=== PATIENT | female | born 1940 | race Hispanic/Latino ===

== ENCOUNTER 2017-04-04 17:48 | Emergency (ER) | payer MEDICARE, MEDICAID ==
[2017-04-04 18:34] LABS: #Basophils 0.1 thou/uL (0.0-0.2); #Eosinphils 0.1 thou/uL (0.0-0.7); #Lymphocytes 2.6 thou/uL (1.20-3.40); #Monocytes 0.8 thou/uL (0.11-0.59); #Neutrophils 5.3 thou/uL (1.40-6.50); %Basophils 0.8 % (0.0-1.0); %Eosinophils 0.7 % (0.0-10.0); %Lymphocytes 29.7 % (21.0-51.0); %Monocytes 8.5 % (0.0-10.0); Hematocrit 42.9 % (36.0-47.0); Mean Platelet Volume 7.5 fL (7.4-10.4); Red Blood Cell (RBC) Count 4.54 mill/uL (4.20-5.40); White Blood Cell (WBC) Count 8.8 thou/uL (4.8-10.8)
[2017-04-04 18:52] LABS: ALT (SGPT) 19 U/L (8-55); AST (SGOT) 19 U/L (5-34); Alkaline Phosphatase 94 U/L (40-150); Anion Gap 15 mmol/L (10-20); BUN (Urea Nitrogen) 13 mg/dL (9.8-20.1); Bilirubin, Total 0.9 mg/dL (0.2-1.2); CK (CPK) 33 U/L (29-168); Calc. Creatinine Clearance 0 mL/min (70-130); Calcium 9.9 mg/dL (7.8-10.44); Carbon Dioxide 26 mmol/L (23-31); Chloride 100 mmol/L (98-107); Estimated GFR-MDRD 83; Globulin 3.8 g/dL (2.4-3.5); Protein, Total 8.1 g/dL (6.0-8.3)
--- NOTE | 2017-04-04 18:52 | RAD ---
PORTABLE CHEST: History: Dizziness. Comparison: 01-12-11 FINDINGS: The lung quinonez are clear of infiltrate. Heart and mediastinum unremarkable. Vascular markings normal . IMPRESSION: No acute abnormality identified. POS: [facility]
[2017-04-04 18:57] LABS: Troponin I Less than 0.010 ng/mL (< 0.028)
--- NOTE | 2017-04-04 19:42 | RAD ---
LATERAL CHEST: History: Nausea, vomiting. FINDINGS: An AP chest was obtained at 7:25 p.m. No infiltrates seen in the lateral projection. Mild aortic calcification. The thoracic vertebrae main tain normal height and alignment. IMPRESSION: No acute abnormality identified. POS: [facility]
[2017-04-04 20:35] LABS: Bilirubin Negative (Negative); Blood, Urine Negative (Negative); Glucose, Urine (Dipstick) Negative (Negative); Ketone, Urine Negative (Negative); Nitrite Negative (Negative); Protein, Urine (Dipstick) Negative (Neg-Trace)
== END 2017-04-04 20:54 | disposition home or self-care (01) ==
LOC: ERS 17:48
DX: R11.2 Nausea with vomiting, unspecified (principal); E78.5 Hyperlipidemia, unspecified; I10 Essential (primary) hypertension; Z79.899 Other long term (current) drug therapy
CPT/HCPCS: 36415; 71010; 80053; 81003; 82553; 83690; 84484; 85025; 93005; 96360; 96361

== ENCOUNTER 2017-10-03 14:04 | Emergency (ER) | payer MEDICARE, MEDICAID ==
[2017-10-03 15:08] LABS: Bilirubin Negative (Negative); Blood, Urine Trace (Negative); Clarity CLEAR (Clear); Glucose, Urine (Dipstick) Negative (Negative); Leukocyte Negative (Negative); Nitrite Negative (Negative); Protein, Urine (Dipstick) Negative (Neg-Trace); Specific Gravity, Urine 1.015 (1.002-1.036); Urobilinogen 0.2 mg/dL (0.2-1.0); pH, Urine 5.5 (5.0-9.0)
[2017-10-03 15:11] LABS: Bacteria/HPF None Seen HPF (None Seen); Hyaline Casts/LPF 4-6 HYALINE CAST LPF (0-3 Hyaline); Pathc Cast-AUWi Flag 0.72 (0-2.49); RBC/HPF 0-3 HPF (0-3); Squamous Epithelial 0-3 HPF (0-3); WBC/HPF 0-3 HPF (0-3)
== END 2017-10-03 16:27 | disposition home or self-care (01) ==
LOC: ERS 14:04
DX: R30.0 Dysuria (principal); E78.5 Hyperlipidemia, unspecified; I10 Essential (primary) hypertension
CPT/HCPCS: 81003; 81015; 87086; 99283

== ENCOUNTER 2017-11-20 15:04 | Inpatient (IN) | payer MEDICARE, MEDICAID ==
[2017-11-20] MEDS ORDERED: Acetaminophen 500 MG TAB ONE (15:13)
--- NOTE | 2017-11-20 15:53 | RAD ---
FRONTAL VIEW CHEST: Comparison: 04-04-17 Indication: Fever. FINDINGS: No evidence of lobar consolidation. Minimal patchy density seen at left lung base. Cardiomediastinal silhouette is stable. No significant interval change. IMPRESSION: No obvious acute process. POS: [facility]
[2017-11-20 15:59] LABS: #Basophils 0.1 thou/uL (0.0-0.2); #Eosinphils 0.1 thou/uL (0.0-0.7); #Lymphocytes 1.2 thou/uL (1.20-3.40); #Monocytes 1.8 thou/uL (0.11-0.59); #Neutrophils 15.2 thou/uL (1.40-6.50); %Basophils 0.3 % (0.0-1.0); %Eosinophils 0.3 % (0.0-10.0); %Lymphocytes 6.7 % (21.0-51.0); %Monocytes 9.9 % (0.0-10.0); %Neutrophils 82.7 % (42.0-75.0); Mean Corpuscular HGB CONC 34.3 g/dL (32.0-36.0); Mean Corpuscular Hemoglobin 31.9 pg (27.0-31.0); Mean Corpuscular Volume 92.9 fL (78.0-98.0); Mean Platelet Volume 7.3 fL (7.4-10.4); Platelet Count 338 thou/uL (130-400); RBC Distribution Width 11.4 % (11.5-14.5); Red Blood Cell (RBC) Count 4.06 mill/uL (4.20-5.40); White Blood Cell (WBC) Count 18.4 thou/uL (4.8-10.8)
[2017-11-20 16:18] LABS: ALT (SGPT) 14 U/L (8-55); AST (SGOT) 15 U/L (5-34); Albumin 4.1 g/dL (3.4-4.8); Alkaline Phosphatase 101 U/L (40-150); Anion Gap 15 mmol/L (10-20); BUN (Urea Nitrogen) 9 mg/dL (9.8-20.1); Calc. Creatinine Clearance 0 mL/min (70-130); Calcium 9.2 mg/dL (7.8-10.44); Carbon Dioxide 22 mmol/L (23-31); Chloride 99 mmol/L (98-107); Estimated GFR-MDRD Greater than 90; Globulin 3.4 g/dL (2.4-3.5); Glucose 110 mg/dL (83-110); Protein, Total 7.5 g/dL (6.0-8.3); Sodium 133 mmol/L (136-145)
[2017-11-20] MEDS ORDERED: Piperacillin/Tazobactam 4.5 GM VIAL ONE (17:05)
[2017-11-20] MEDS ORDERED: Potassium Chloride 20 MEQ TAB ONE (17:05)
[2017-11-20 17:11] LABS: Bilirubin Negative (Negative); Blood, Urine Trace (Negative); Clarity CLEAR (Clear); Glucose, Urine (Dipstick) Negative (Negative); Leukocyte Negative (Negative); Nitrite Negative (Negative); Protein, Urine (Dipstick) Negative (Neg-Trace); Specific Gravity, Urine 1.006 (1.002-1.036); Urobilinogen 0.2 mg/dL (0.2-1.0)
[2017-11-20 17:14] LABS: Bacteria/HPF None Seen HPF (None Seen); Hyaline Casts/LPF 0-3 HYALINE CAST LPF (0-3 Hyaline); Pathc Cast-AUWi Flag 0.29 (0-2.49); RBC/HPF 0-3 HPF (0-3); Squamous Epithelial 0-3 HPF (0-3); WBC/HPF None Seen HPF (0-3)
--- NOTE | 2017-11-20 17:29 | RAD ---
SINGLE VIEW OF CHEST: Date: 11/20/17 COMPARISON: 04/04/17 and 11/20/17. HISTORY: Fever. FINDINGS: Single lateral view of the chest shows an opacity projecting just behind the heart. This could potent ially represent a small hiatal hernia. This could also represent a subtle retrocardiac infiltrate. No pleural effusion is seen. IMPRESSION: Hiatal hernia versus subtle retrocardiac infiltrate. POS: [facility]
[2017-11-20 20:26] VITALS: BMI 23.3
[2017-11-20] MEDS ORDERED: Sodium Chloride 0.9% 1,000 ML IV SCH (20:30)
[2017-11-20] MEDS ORDERED: Vancomycin HCl 1 GM in Premix Bag 1 BAG IVPB SCH (20:30)
[2017-11-20] MEDS ORDERED: Albuterol Sulfate 2.5 mg/3 ml Neb NEB PRN (21:00)
[2017-11-20] MEDS ORDERED: Prevnar 13-Val Conj/PF 0.5 ML SYRINGE IM ONE (21:00)
[2017-11-20] MEDS ORDERED: cefTRIAXone\\ROCEPHIN 1 GM in Sodium Chloride 0.9% 100 ML IVPB SCH (21:00)
[2017-11-20] MEDS ORDERED: Guaifenesin DM 100-10/5 ML UDCUP PO PRN (21:00)
[2017-11-20] MEDS: Sodium Chloride 0.9% 1,000 ML IV SCH (21:39)
[2017-11-20] MEDS: Azithromycin 500 MG in Sodium Chloride 0.9% 250 ML 250 ML IVPB SCH (21:39)
[2017-11-20] MEDS: Famotidine 20 MG TAB PO SCH (21:40)
[2017-11-20] MEDS: Atorvastatin Calcium 20 MG TAB PO SCH (21:40)
[2017-11-20] MEDS: Acetaminophen 325 MG TAB PO PRN (21:54)
[2017-11-20] MEDS ORDERED: Potassium Chloride 20 MEQ TAB PO SCH (22:00)
--- NOTE | 2017-11-20 23:54 | HP ---
REASON FOR ADMISSION: Sepsis, pneumonia. HISTORY OF PRESENT ILLNESS: The patient gives history of feeling warm around 11:00 a.m. Later, the patient started to develop fever. She took her hypertension medications and 2 tablets of aspirin. S till her fever was not getting relieved. All of this concerned her and was feeling weak as well. Th e patient managed to come to the emergency room. On arrival here, patient had a temperature of 100.6 with a fever with a white count of 18. The patient was suspected to have left retrocardiac area inf iltrate. No complaints of urinary urgency or frequency. Has no cough or expectoration as such. No complaints of chest pain, palpitation, PND or orthopnea. PAST MEDICAL AND SURGICAL HISTORY: Hypertension, dyslipidemia, hysterectomy. CURRENT MEDICATIONS: Norvasc 10 mg daily, quinapril 10 mg daily, hydrochlorothiazide 25 mg daily, at orvastatin 20 mg daily, Flexeril p.r.n., Motrin p.r.n. ALLERGIES: No known drug allergies. PERSONAL HISTORY: Does not abuse alcohol or drugs. No history of smoking. FAMILY HISTORY: Both parents of old age. Mom was 76. Father was in his 80s. CODE STATUS: Full. REVIEW OF SYSTEMS: The following complete review of systems was negative, unless otherwise mentioned in the HPI or below: Constitutional: Weight loss or gain, ability to conduct usual activities. Sk in: Rash, itching. Eyes: Double vision, pain. ENT/Mouth: Nose bleeding, neck stiffness, pain, te nderness. Cardiovascular: Palpitations, dyspnea on exertion, orthopnea. Respiratory: Shortness of breath, wheezing, cough, hemoptysis, fever or night sweats. Gastrointestinal: Poor appetite, abdom inal pain, heartburn, nausea, vomiting, constipation, or diarrhea. Genitourinary: Urgency, frequenc y, dysuria, nocturia. Musculoskeletal: Pain, swelling. Neurologic/Psychiatric: Anxiety, depression. Allergy/Immunologic: Skin rash, bleeding tendency. PHYSICAL EXAMINATION: GENERAL: The patient is a 77-year-old female who is currently not in any acute distress. VITAL SIGNS: Blood pressure 170/80, pulse 110 per minute, respiratory rate 20 per minute, temperatur e 100.6 degrees Fahrenheit, saturating 96% on room air. NECK: Supple, no elevated JVD. HEENT: Eyes, extraocular muscles intact. Pupils reacting to light. Oral cavity mucous membranes ar e dry. No exudates or congestion. CARDIOVASCULAR: S1, S2 heard. Regular rhythm, tachycardic. RESPIRATORY: Air entry 1+ bilateral. Scattered rhonchi plus no wheezes or rales. ABDOMEN: Soft, bowel sounds heard. No tenderness, rigidity or guarding. EXTREMITIES: No peripheral edema or calf tenderness. VASCULAR SYSTEM: Peripheral pulses 2+ bilateral, no ischemic ulcerations or gangrene. CENTRAL NERVOUS SYSTEM: No gross focal deficits noted. Patient is alert, awake, oriented well. PSYCHIATRIC: The patient's mood is euthymic. No hallucinations or delusions. LABORATORY AND X-RAY FINDINGS: EKG done shows sinus tachycardia at 110 beats per minute. There is p oor R-wave progression and nonspecific ST-T wave changes. White count of 18, H&H 13 and 37, platelet count is 338, MCV is 92 with 82% neutrophils. Sodium 133, potassium 3.0, serum bicarbonate 22, BUN 9, creatinine 0.5. Liver enzymes within normal limits. Albumin is 4.1. UA is negative for any inf ection. Chest x-ray done both AP, lateral view shows retrocardiac infiltrate and hiatal hernia. CLINICAL IMPRESSION AND PLAN: The patient will be admitted to medical floor for sepsis, possible pne umonia. She will be placed on Zithromax and ceftriaxone. We will continue her Lipitor and Norvasc a s before. We will also continue her Accupril at 5 mg twice daily. Gentle hydration with normal sali ne at 90 mL per hour. We will obtain an echo with 2D Doppler for LV function and valvular function. Respiratory cultures, blood and urine cultures will be obtained as well. We will continue to closel y monitor the patient on medical floor. The patient normally ambulates by herself without any assist constance devices.
[2017-11-21] MEDS: Acetaminophen 325 MG TAB PO PRN ×2 (03:23→08:04)
[2017-11-21 05:05] LABS: #Lymphocytes 1.5 thou/uL (1.20-3.40); #Monocytes 2.6 thou/uL (0.11-0.59); #Neutrophils 15.4 thou/uL (1.40-6.50); %Basophils 0.2 % (0.0-1.0); %Eosinophils 0.1 % (0.0-10.0); %Lymphocytes 7.6 % (21.0-51.0); %Monocytes 13.1 % (0.0-10.0); Hemoglobin 11.7 g/dL (12.0-16.0); Mean Corpuscular HGB CONC 33.8 g/dL (32.0-36.0); Mean Corpuscular Hemoglobin 31.6 pg (27.0-31.0); Mean Corpuscular Volume 93.4 fL (78.0-98.0); Mean Platelet Volume 7.7 fL (7.4-10.4); Platelet Count 304 thou/uL (130-400); RBC Distribution Width 11.7 % (11.5-14.5); Red Blood Cell (RBC) Count 3.72 mill/uL (4.20-5.40); White Blood Cell (WBC) Count 19.5 thou/uL (4.8-10.8)
[2017-11-21 05:36] LABS: Anion Gap 13 mmol/L (10-20); BUN (Urea Nitrogen) 6 mg/dL (9.8-20.1); Calc. Creatinine Clearance 89 mL/min (70-130); Calcium 8.7 mg/dL (7.8-10.44); Carbon Dioxide 22 mmol/L (23-31); Chloride 104 mmol/L (98-107); Estimated GFR-MDRD Greater than 90; Glucose 124 mg/dL (83-110); Potassium 3.7 mmol/L (3.5-5.1); Sodium 135 mmol/L (136-145)
[2017-11-21] MEDS: Amlodipine 10 MG TAB PO SCH (09:18)
[2017-11-21] MEDS: Potassium Chloride 20 MEQ TAB PO SCH ×2 (09:18→16:35)
[2017-11-21] MEDS: Enoxaparin Sodium 40 MG/0.4 ML SYRINGE SC SCH (09:19)
[2017-11-21] MEDS: Famotidine 20 MG TAB PO SCH ×2 (09:20→20:11)
[2017-11-21] MEDS: Sodium Chloride 0.9% 1,000 ML IV SCH ×2 (09:25→12:24)
--- NOTE | 2017-11-21 10:47 | PDOC.PN ---
- Subjective Encounter Start Date: 11/21/17 Encounter Start Time: 09:20 Subjective: c/o cough with expectoration this am -: no chest pain or palp -: son at bedside - Objective Resuscitation Status: Resuscitation Status FULL:Full Resuscitation MAR Reviewed: Yes Vital Signs & Weight: Vital Signs (12 hours) Temp Pulse Resp BP BP Pulse Ox 11/21/17 09:18 86 132/66 11/21/17 07:34 99.7 F H 86 16 132/66 95 11/21/17 06:00 99.1 F 69 18 100/62 93 L 11/21/17 03:20 103.0 F H 11/21/17 00:00 100.1 F H 89 20 118/69 92 L I&O: 11/20/17 11/21/17 11/22/17 06:59 06:59 06:59 Intake Total 2160 Balance 2160 Result Diagrams: 11/21/17 03:46 11/21/17 03:46 Phys Exam - Physical Examination HEENT: PERRLA, moist MMs Neck: no JVD, supple Respiratory: no wheezing, no rales rhonchi+ Cardiovascular: RRR, no significant murmur Gastrointestinal: soft, non-tender, positive bowel sounds Musculoskeletal: no edema, pulses present Neurological: non-focal, moves all 4 limbs Psychiatric: normal affect, A&O x 3 Dx/Plan (1) Sepsis Code(s): A41.9 - SEPSIS, UNSPECIFIED ORGANISM Status: Acute Qualifiers: Sepsis type: sepsis due to unspecified organism Qualified Code(s): A41.9 - Sepsis, unspecified organism (2) PNA (pneumonia) Code(s): J18.9 - PNEUMONIA, UNSPECIFIED ORGANISM Status: Acute Qualifiers: Pneumonia type: due to unspecified organism Laterality: left Lung location: lower lobe of lung Qualified Code(s): J18.1 - Lobar pneumonia, unspecified organism (3) HTN (hypertension) Code(s): I10 - ESSENTIAL (PRIMARY) HYPERTENSION Status: Chronic Qualifiers: Hypertension type: essential hypertension Qualified Code(s): I10 - Essential (primary) hypertension (4) Dyslipidemia Code(s): E78.5 - HYPERLIPIDEMIA, UNSPECIFIED Status: Chronic - Plan is on zithromax and ceftriaxone -: nebs q6h/qid -: continue norvasc and lipitor -: dc quinapril due to cough at present -: CT chest to confirm if its pna, wbc is 19k, bnp 127 * . Review of Systems - Medications/Allergies Allergies/Adverse Reactions: Allergies Allergy/AdvReac Type Severity Reaction Status Date / Time No Known Allergies Allergy Unverified 11/20/17 20:22 Medications: Current Medications Acetaminophen (Tylenol) 650 mg PO Q4H PRN PRN Reason: Headache/Fever or Pain Last Admin: 11/21/17 08:04 Dose: 650 mg Albuterol Sulfate (Ventolin) 2.5 mg NEB Q6H [facility] Amlodipine Besylate (Norvasc) 10 mg PO DAILY [facility] Last Admin: 11/21/17 09:18 Dose: 10 mg Atorvastatin Calcium (Lipitor) 20 mg PO HS [facility] Last Admin: 11/20/17 21:40 Dose: 20 mg Enoxaparin Sodium (Lovenox) 40 mg SC 0900 [facility] Last Admin: 11/21/17 09:19 Dose: 40 mg Famotidine (Pepcid) 20 mg PO BID [facility] Last Admin: 11/21/17 09:20 Dose: 20 mg Guaifenesin/Dextromethorphan (Robitussin Dm) 15 ml PO Q4H PRN PRN Reason: Cough Azithromycin 500 mg/ Sodium (Chloride) 250 mls @ 250 mls/hr IVPB Q24HR [facility] Last Admin: 11/20/17 21:39 Dose: 250 mls Sodium Chloride (Normal Saline 0.9%) 1,000 mls @ 90 mls/hr IV .[id number] [facility] Stop: 11/21/17 19:13 Last Admin: 11/21/17 09:25 Dose: Not Given Ceftriaxone Sodium 1 gm/ (Sodium Chloride) 100 mls @ 200 mls/hr IVPB Q24HR [facility] Potassium Chloride (K-Dur) 40 meq PO BID-[facility] Last Admin: 11/21/17 09:18 Dose: 40 meq
[2017-11-21] MEDS: Albuterol Sulfate 2.5 mg/3 ml Neb NEB SCH ×2 (12:52→19:23)
[2017-11-21] MEDS ORDERED: ISOVUE-370 76%-LOCM 1 ML ONE (13:09)
--- NOTE | 2017-11-21 14:03 | CT ---
CT CHEST WITHOUT CONTRAST: HISTORY: Cough. COMPARISON: None. TECHNIQUE: Multiple contiguous axial images were obtained in a CT of the chest without contrast. Coronal reform ats were performed. FINDINGS: No focal infiltrates or nodules are seen in the lungs. No pneumothorax or pleural effusion is presen t. The heart is at the upper limits of normal in size. Calcifications are seen in the coronary arteries and aorta. No hilar or mediastinal lymphadenopathy is appreciated on this limited noncontrast exami nation. The visualized subdiaphragmatic structures are unremarkable. The chest wall soft tissues are unremar kable. Degenerative changes are seen in the spine. IMPRESSION: No evidence of acute intrathoracic abnormality. POS: [facility]
[2017-11-21] MEDS ORDERED: Ibuprofen 200 MG TAB PO SCH (16:30)
[2017-11-21] MEDS: Azithromycin 500 MG in Sodium Chloride 0.9% 250 ML 250 ML IVPB SCH (20:08)
[2017-11-21] MEDS: Atorvastatin Calcium 20 MG TAB PO SCH (20:08)
--- NOTE | 2017-11-21 20:59 | CT ---
CT OF THE ABDOMEN AND PELVIS: Date: 11-21-17 Comparison: None. History: Sepsis, abdominal pain. Technique: Serial axial CT imaging at 5 mm intervals from lung bases through pubic symphysis with IV and oral contrast. Coronal reformatted imaging obtained. FINDINGS: The imaged lung bases appear unremarkable. No free intraperitoneal air or fluid is seen. Cholelithiasis is noted. Liver, spleen, pancreas, adrenal glands and kidneys appear unremarkable. No evidence for bowel inflammatory change or obstruction. Scattered atherosclerotic calcification of the abdominal aorta and its branches noted. Mild mark prominence noted within the right lower quadrant mesentery. No worrisome lytic or blastic bone lesion. IMPRESSION: Cholelithiasis. No evidence for bowel obstruction, free intraperitoneal air, or focal bowel inflammat ory change. POS: [facility]
--- NOTE | 2017-11-21 21:25 | ULT ---
BILATERAL LOWER EXTREMITY VENOUS DOPPLER ULTRASOUND: Date: 11-21-17 Comparison: None. History: Swelling, edema, assess for DVT. Technique: Multiplanar grayscale sonographic imaging of the venous structures of the bilateral lower extremities obtained with color flow and spectral analysis. FINDINGS: Bilateral common femoral veins, greater saphenous veins, profunda femoral veins, femoral veins, popli teal veins, and posterior tibial veins are patent. There is normal blood flow, augmentation, and comp ression within the deep venous system bilaterally with no evidence for DVT on either side. IMPRESSION: No evidence for deep venous thrombosis of either lower extremity. POS: [facility]
[2017-11-21] MEDS: cefTRIAXone\\ROCEPHIN 1 GM, Admixture Fee 1 EACH in Sodium Chloride 0.9% 100 ML IVPB SCH (23:35)
[2017-11-21] MEDS ORDERED: cefTRIAXone\\ROCEPHIN 1 GM in Sodium Chloride 0.9% 100 ML IVPB SCH (23:59)
[2017-11-22] MEDS: Albuterol Sulfate 2.5 mg/3 ml Neb NEB SCH ×5 (00:04→23:00)
[2017-11-22 04:48] LABS: #Basophils 0.1 thou/uL (0.0-0.2); #Eosinphils 0.1 thou/uL (0.0-0.7); #Monocytes 1.9 thou/uL (0.11-0.59); #Neutrophils 13.4 thou/uL (1.40-6.50); %Basophils 0.3 % (0.0-1.0); %Eosinophils 0.3 % (0.0-10.0); %Lymphocytes 11.6 % (21.0-51.0); %Neutrophils 76.8 % (42.0-75.0); Hemoglobin 11.4 g/dL (12.0-16.0); Mean Corpuscular HGB CONC 33.1 g/dL (32.0-36.0); Mean Corpuscular Volume 93.6 fL (78.0-98.0); Mean Platelet Volume 7.3 fL (7.4-10.4); Platelet Count 274 thou/uL (130-400); RBC Distribution Width 11.8 % (11.5-14.5); Red Blood Cell (RBC) Count 3.67 mill/uL (4.20-5.40); White Blood Cell (WBC) Count 17.5 thou/uL (4.8-10.8)
[2017-11-22 05:11] LABS: ALT (SGPT) 20 U/L (8-55); AST (SGOT) 22 U/L (5-34); Albumin 3.2 g/dL (3.4-4.8); Alkaline Phosphatase 86 U/L (40-150); Anion Gap 12 mmol/L (10-20); BUN (Urea Nitrogen) 5 mg/dL (9.8-20.1); Bilirubin, Total 0.6 mg/dL (0.2-1.2); Calc. Creatinine Clearance 101 mL/min (70-130); Calcium 8.6 mg/dL (7.8-10.44); Carbon Dioxide 21 mmol/L (23-31); Chloride 110 mmol/L (98-107); Estimated GFR-MDRD Greater than 90; Globulin 2.9 g/dL (2.4-3.5); Glucose 99 mg/dL (83-110); Potassium 3.5 mmol/L (3.5-5.1); Protein, Total 6.1 g/dL (6.0-8.3); Sodium 139 mmol/L (136-145)
[2017-11-22] MEDS: Chloraseptic Spray 180 ml Bottle PO PRN ×2 (09:00→16:30)
[2017-11-22] MEDS: Potassium Chloride 20 MEQ TAB PO SCH ×2 (09:00→16:30)
[2017-11-22] MEDS: Famotidine 20 MG TAB PO SCH ×2 (09:34→20:47)
[2017-11-22] MEDS: Amlodipine 10 MG TAB PO SCH (09:34)
[2017-11-22] MEDS: Enoxaparin Sodium 40 MG/0.4 ML SYRINGE SC SCH (09:37)
[2017-11-22] MEDS ORDERED: ISOVUE-370 76%-LOCM 1 ML ONE (11:18)
--- NOTE | 2017-11-22 12:31 | PDOC.PN ---
- Subjective Encounter Start Date: 11/22/17 Encounter Start Time: 07:40 Subjective: no sob or chest pain -: has cough+, no nausea - Objective Resuscitation Status: Resuscitation Status FULL:Full Resuscitation MAR Reviewed: Yes Vital Signs & Weight: Vital Signs (12 hours) Temp Pulse Resp BP BP Pulse Ox 11/22/17 11:15 98.2 F 93 16 99/64 96 11/22/17 09:34 99 117/62 11/22/17 08:00 98.7 F 99 16 96 11/22/17 07:13 98.7 F 99 16 117/62 92 L 11/22/17 06:32 80 12 11/22/17 03:53 97.4 F L 82 16 105/67 93 L I&O: 11/21/17 11/22/17 11/23/17 06:59 06:59 06:59 Intake Total 2160 3930 Balance 2160 3930 Result Diagrams: 11/22/17 03:44 11/22/17 03:44 Phys Exam - Physical Examination HEENT: PERRLA, moist MMs Neck: no JVD, supple Respiratory: no wheezing, no rales Cardiovascular: RRR, no significant murmur Gastrointestinal: soft, no distention, positive bowel sounds Musculoskeletal: no edema, pulses present Neurological: non-focal, moves all 4 limbs Psychiatric: normal affect, A&O x 3 Dx/Plan (1) Sepsis Code(s): A41.9 - SEPSIS, UNSPECIFIED ORGANISM Status: Acute Qualifiers: Sepsis type: sepsis due to unspecified organism Qualified Code(s): A41.9 - Sepsis, unspecified organism (2) HTN (hypertension) Code(s): I10 - ESSENTIAL (PRIMARY) HYPERTENSION Status: Chronic Qualifiers: Hypertension type: essential hypertension Qualified Code(s): I10 - Essential (primary) hypertension (3) Dyslipidemia Code(s): E78.5 - HYPERLIPIDEMIA, UNSPECIFIED Status: Chronic - Plan unclear etiology for fever and sepsis, tmax of 102, wbc is 17k -: CT chest was -ve for pna, viral pcr is -ve -: usg venous doppler is -ve, echo shows good ef, mod mitral regurg -: await ruq usg to r/o cholecystitis -: ID consultation, is on zithro and ceftriaxone * . Review of Systems - Medications/Allergies Allergies/Adverse Reactions: Allergies Allergy/AdvReac Type Severity Reaction Status Date / Time No Known Allergies Allergy Unverified 11/20/17 20:22 Medications: Current Medications Acetaminophen (Tylenol) 650 mg PO Q4H PRN PRN Reason: Headache/Fever or Pain Last Admin: 11/21/17 08:04 Dose: 650 mg Albuterol Sulfate (Ventolin) 2.5 mg NEB [id number] [facility] Last Admin: 11/22/17 06:32 Dose: 2.5 mg Amlodipine Besylate (Norvasc) 10 mg PO DAILY [facility] Last Admin: 11/22/17 09:34 Dose: 10 mg Atorvastatin Calcium (Lipitor) 20 mg PO HS [facility] Last Admin: 11/21/17 20:08 Dose: 20 mg Enoxaparin Sodium (Lovenox) 40 mg SC 0900 [facility] Last Admin: 11/22/17 09:37 Dose: 40 mg Famotidine (Pepcid) 20 mg PO BID [facility] Last Admin: 11/22/17 09:34 Dose: 20 mg Guaifenesin/Dextromethorphan (Robitussin Dm) 15 ml PO Q4H PRN PRN Reason: Cough Azithromycin 500 mg/ Sodium (Chloride) 250 mls @ 250 mls/hr IVPB Q24HR [facility] Last Admin: 11/21/17 20:08 Dose: 250 mls Ceftriaxone Sodium 1 gm/Miscellaneous Medication 1 each/ Sodium Chloride 100 mls @ 200 mls/hr IVPB 2359 [facility] Last Admin: 11/21/17 23:35 Dose: 100 mls Phenol (Chloraseptic [place] 180 Ml Bot) 0 ml PO PRN PRN PRN Reason: SORE THROAT Potassium Chloride (K-Dur) 40 meq PO BID-[facility] Last Admin: 11/22/17 09:00 Dose: 40 meq
--- NOTE | 2017-11-22 14:46 | ULT ---
SONOGRAM ABDOMEN COMPLETE: History: Upper abdominal pain. FINDINGS: Large echogenic stone with posterior shadowing is present within the gallbladder lumen. There is no g allbladder wall thickening or pericholecystic fluid. Common duct is 0.4 cm. Liver is unremarkable wit hout focal mass or intrahepatic biliary dilatation. No free fluid. The spleen, kidneys, and visualize d portions of the abdominal aorta, IVC, and pancreas have a normal sonographic appearance. IMPRESSION: Cholelithiasis. No evidence of acute biliary obstruction. POS: [facility]
--- NOTE | 2017-11-22 18:31 | CT ---
CT OF THE NECK WITH CONTRAST: 11/22/17 COMPARISON: None. HISTORY: Difficulty swallowing, right sided neck pain. TECHNIQUE: Serial axial CT imaging is obtained at 2.5 mm intervals from the skull base through lung apices with IV contrast. Coronal and sagittal reformatted imaging obtained. FINDINGS: Limited assessment of the imaged brain parenchyma is unremarkable. The imaged paranasal sinuses and mastoid air cells are unremarkable. The retroantral fat and parapharyngeal fat is clear bilaterally. The parotid glands and submandibular glands are unremarkable bilaterally. There is mass-like enlargement of the palatine tonsil on the left approaching the glossotonsillar sul cus measuring 2.6 x 1.9 cm. In addition, there is mucosal thickening involving the glossotonsillar harding lcus and palatine tonsil on the right, less mass-like than on the left. The lingual tonsils appears t hickened and relatively hypodense, abutting the ventral aspect of the epiglottis. There is no evidenc e for a drainable abscess. The hyoid bone, thyroid cartilage, cricoid cartilage, and level of the glottis appears unremarkable. There are two lesions within the right lobe of the thyroid gland, the larger of the two lesions measu ring 1.5 cm and demonstrating heterogeneous low density. The imaged lung apices demonstrate no acute findings. There is atherosclerotic calcification of the aortic arch in the descending thoracic aorta. The vascu lar structures appear patent. Enlarged level IIa nodes are present on the right measuring up to 1.1 cm in short axis dimension. Rig ht side level III lymphadenopathy measures up to 1 cm in short axis dimension. Multiple mildly enlarg ed right sided level V nodes are present. On the left, level IIa adenopathy measures up to 1.1 cm in short axis dimension. There is an enlarged level III node on the left measuring 1.1 cm and there are enlarged level V nodes on the left measuri ng up to 1.2 cm in short axis dimension. The osseous structures demonstrate no worrisome lytic or blastic bone lesions. There are scattered de generative changes noted within the cervical spine, relatively mild. IMPRESSION: 1. Mass-like enlargement of the left palatine tonsil. Mucosal thickening involving the right pal atine tonsil as well as the lingual tonsils with bilateral neck lymphadenopathy. These findings may s ignify malignancy, such as squamous cell carcinoma, within the palatine tonsil on the left with metas tatic adenopathy. Alternative consideration is multifocal infectious process. ENT consultation is rec ommended. 2. Thyroid nodules on the right. Recommend followup thyroid ultrasound. Code T POS: [facility]
[2017-11-22] MEDS: Atorvastatin Calcium 20 MG TAB PO SCH (20:47)
[2017-11-22] MEDS: Azithromycin 500 MG in Sodium Chloride 0.9% 250 ML 250 ML IVPB SCH (20:48)
--- NOTE | 2017-11-22 20:57 | CON ---
DATE OF CONSULTATION: 11/22/2017 REASON FOR CONSULTATION: Fever. HISTORY OF PRESENT ILLNESS: A 77-year-old admitted with a history of hypertension and new onset of fever about 1 day before admission, she felt some weakness as well and went to the emergency room and his initial temperature was 100.6, elevated white cell count of 18,000. Initial chest x-ray interpretation suggested a retrocardiac infiltrate. This was not confirmed subsequently and a CT scan of the chest, which was performed, the subsequent day. Patient has been started on broad spectrum coverage assuming a respiratory tract infection and now she has developed sore throat since yesterday and is quite bothersome to her for swallowing, particularly in the right side. No headaches, visual symptoms. No cough or sputum production or chest pain, abdominal pain, diarrhea , genitourinary symptoms, no joint symptoms. No skin disorder. PAST MEDICAL HISTORY: Hypertension, dyslipidemia, hysterectomy. ALLERGIES: None. SOCIAL HISTORY: Never smoker. FAMILY HISTORY: Noncontributory. CURRENT MEDICATIONS: Quinapril, hydrochlorothiazide, Norvasc, atorvastatin, Flexeril, and currently, she is on azithromycin and ceftriaxone. PHYSICAL EXAMINATION: VITAL SIGNS: T-max 102.9 on 11/21/2017 and today she has been afebrile. BP 99/ 64, pulse 93, respirations 16. SKIN: Normal. There is no lymphadenopathy. There is tenderness on palpation of the right side of the neck, which is quite intense. HEENT: Ocular movements conjugate. Nasal passages patent. Oral cavity with a tonsillar enlargement with some erythema, some exudate and the tonsils as well. NECK: Supple. LUNGS: Symmetrically breath sounds. HEART: S1, S2, regular rate. No S3, S4. ABDOMEN: Soft and not distended or tender. No ascites. No bladder distention. EXTREMITIES: No joint inflammatory activity. LABORATORY DATA: White cell count is 18,000, now 17,000, hemoglobin 11, platelets 274 with 76% neutrophils. Sodium 133. Liver profile normal. Albumin 4.1, globulin 3.4. Urinalysis was normal. Microbiology with a respiratory virus PCR panel which was negative. Sputum culture with a few budding yeast, nose and throat culture with a few normal respiratory nick. An echocardiogram with ejection fraction estimated at 55-60%, moderate mitral regurg, abdomen and pelvis CT with cholelithiasis, but no other abnormality seen. ASSESSMENT: History of hypertension, new onset of fever now with a sore throat and tenderness in some right side of the neck, possible tonsillitis, persistence of neutrophilia with fever. DISCUSSION: The differential diagnosis includes a viral infection such as EBV or CMV, possible cervical lymphadenitis, malignancy with lymphoma for example. A bacterial inflammatory process, for example, Vincent's angina, would be another possibility. We will scan her soft tissues of the neck with contrast. Continue current antimicrobials. MTDD
[2017-11-22] MEDS: cefTRIAXone\\ROCEPHIN 1 GM, Admixture Fee 1 EACH in Sodium Chloride 0.9% 100 ML IVPB SCH (23:02)
[2017-11-23] MEDS: Albuterol Sulfate 2.5 mg/3 ml Neb NEB SCH ×3 (07:37→18:49)
[2017-11-23 07:46] LABS: #Eosinphils 0.1 thou/uL (0.0-0.7); #Monocytes 0.6 thou/uL (0.11-0.59); #Neutrophils 3.7 thou/uL (1.40-6.50); %Basophils 0.7 % (0.0-1.0); %Eosinophils 2.2 % (0.0-10.0); %Lymphocytes 31.2 % (21.0-51.0); %Monocytes 8.8 % (0.0-10.0); Hemoglobin 11.9 g/dL (12.0-16.0); Mean Corpuscular HGB CONC 32.8 g/dL (32.0-36.0); Mean Corpuscular Hemoglobin 30.9 pg (27.0-31.0); Mean Corpuscular Volume 94.1 fL (78.0-98.0); Mean Platelet Volume 6.9 fL (7.4-10.4); Platelet Count 316 thou/uL (130-400); RBC Distribution Width 11.9 % (11.5-14.5); Red Blood Cell (RBC) Count 3.87 mill/uL (4.20-5.40); White Blood Cell (WBC) Count 6.4 thou/uL (4.8-10.8)
[2017-11-23 08:00] LABS: Anion Gap 8 mmol/L (10-20); BUN (Urea Nitrogen) 5 mg/dL (9.8-20.1); Calc. Creatinine Clearance 84 mL/min (70-130); Calcium 9.1 mg/dL (7.8-10.44); Carbon Dioxide 26 mmol/L (23-31); Chloride 108 mmol/L (98-107); Estimated GFR-MDRD Greater than 90; Glucose 110 mg/dL (83-110); Potassium 4.3 mmol/L (3.5-5.1); Sodium 138 mmol/L (136-145)
[2017-11-23] MEDS: Potassium Chloride 20 MEQ TAB PO SCH ×2 (08:01→16:33)
[2017-11-23] MEDS: Amlodipine 10 MG TAB PO SCH (08:01)
[2017-11-23] MEDS: Enoxaparin Sodium 40 MG/0.4 ML SYRINGE SC SCH (08:03)
[2017-11-23] MEDS: Famotidine 20 MG TAB PO SCH ×2 (08:03→20:57)
--- NOTE | 2017-11-23 12:08 | ULT ---
THYROID ULTRASOUND: HISTORY: Thyroid nodules. TECHNIQUE: Multiple longitudinal and transverse images of the thyroid gland are obtained using a Multi-Hertz kimberley ear array transducer. Real-time and color-flow images are obtained. FINDINGS: The right thyroid lobe measures 4.1 x 1.7 x 1.0 cm, while the left measures 3.9 x 1.7 x 1.4 cm. The largest lesion in the right thyroid lobe is complex, in the upper to mid pole, measuring 1.3 x 2. 6 x 1.2 cm, while the largest in the left thyroid lobe is also in the mid portion and is complex, wit h internal echoes, measuring 1.3 x 1.9 x 1.5 cm. A second solid lesion is also seen in the lower yuryi e, over the left thyroid, measuring 1.1 x 1.4 x 0.9 cm. A thyroid cyst is also seen in the thyroid isthmus. IMPRESSION: Three solid or complex thyroid lesions, as described above. Follow-up evaluation in six months to co nfirm stability is recommended. POS: [facility]
[2017-11-23 13:02] LABS: ANA Symphony (Qualitative) Negative (Negative); dsDNA IgG Antibody 0.6 IU/mL (<10 Negative)
--- NOTE | 2017-11-23 16:50 | PDOC.PN ---
- Subjective Encounter Start Date: 11/23/17 Encounter Start Time: 08:00 Pt seen for followup re: sepsis. Reports occasional cough, no fevers or chills. - Objective Resuscitation Status: Resuscitation Status FULL:Full Resuscitation MAR Reviewed: Yes Vital Signs & Weight: Vital Signs (12 hours) Temp Pulse Resp BP BP Pulse Ox 11/23/17 11:55 98.5 F 93 16 125/62 97 11/23/17 08:04 98.1 F 97 16 115/71 94 L 11/23/17 08:01 90 115/71 11/23/17 07:37 90 16 11/23/17 07:05 98.6 F 90 16 I&O: 11/22/17 11/23/17 11/24/17 06:59 06:59 06:59 Intake Total 3930 2029 Output Total 4 Balance 3930 2025 Result Diagrams: 11/23/17 07:41 11/23/17 07:41 Additional Labs: Labs reviewed by me Phys Exam - Physical Examination Constitutional: NAD HEENT: moist MMs, sclera anicteric thyromegaly, cervical lymphadenopathy Respiratory: clear to auscultation bilateral Cardiovascular: RRR Gastrointestinal: soft Neurological: moves all 4 limbs Psychiatric: normal affect Dx/Plan (1) Sepsis Code(s): A41.9 - SEPSIS, UNSPECIFIED ORGANISM Status: Acute Comment: continue IV antibiotics as below, follow cultures (2) Tonsillar mass Code(s): R22.0 - LOCALIZED SWELLING, MASS AND LUMP, HEAD Status: Acute Comment: consult ENT for ? tonsillar cancer (3) Multiple thyroid nodules Code(s): E04.2 - NONTOXIC MULTINODULAR GOITER Status: Acute Comment: check thyroid US, TSH (4) Dyslipidemia Code(s): E78.5 - HYPERLIPIDEMIA, UNSPECIFIED Status: Chronic Comment: continue statin (5) HTN (hypertension) Code(s): I10 - ESSENTIAL (PRIMARY) HYPERTENSION Status: Chronic Qualifiers: Hypertension type: essential hypertension Qualified Code(s): I10 - Essential (primary) hypertension Comment: controlled - Plan continue antibiotics, out of bed/ambulate * . Review of Systems - Review of Systems Constitutional: weakness ENT: Throat Pain Respiratory: Cough, Dry. negative: Shortness of Breath, SOB with Excertion, Pleuritic Pain, Sputum, Wheezing Cardiovascular: negative: chest pain, palpitations, orthopnea, paroxysmal nocturnal dyspnea, edema, light headedness - Medications/Allergies Allergies/Adverse Reactions: Allergies Allergy/AdvReac Type Severity Reaction Status Date / Time No Known Allergies Allergy Unverified 11/20/17 20:22 Medications: Current Medications Acetaminophen (Tylenol) 650 mg PO Q4H PRN PRN Reason: Headache/Fever or Pain Last Admin: 11/21/17 08:04 Dose: 650 mg Albuterol Sulfate (Ventolin) 2.5 mg NEB [id number] [facility] Last Admin: 11/23/17 13:01 Dose: 2.5 mg Amlodipine Besylate (Norvasc) 10 mg PO DAILY [facility] Last Admin: 11/23/17 08:01 Dose: 10 mg Atorvastatin Calcium (Lipitor) 20 mg PO HS [facility] Last Admin: 11/22/17 20:47 Dose: 20 mg Enoxaparin Sodium (Lovenox) 40 mg SC 0900 [facility] Last Admin: 11/23/17 08:03 Dose: 40 mg Famotidine (Pepcid) 20 mg PO BID [facility] Last Admin: 11/23/17 08:03 Dose: 20 mg Guaifenesin/Dextromethorphan (Robitussin Dm) 15 ml PO Q4H PRN PRN Reason: Cough Azithromycin 500 mg/ Sodium (Chloride) 250 mls @ 250 mls/hr IVPB Q24HR [facility] Last Admin: 11/22/17 20:48 Dose: 250 mls Ceftriaxone Sodium 1 gm/Miscellaneous Medication 1 each/ Sodium Chloride 100 mls @ 200 mls/hr IVPB 2359 [facility] Last Admin: 11/22/17 23:02 Dose: 100 mls Phenol (Chloraseptic Rigby 180 Ml Bot) 0 ml PO PRN PRN PRN Reason: SORE THROAT Last Admin: 11/22/17 16:30 Dose: 1 spr Potassium Chloride (K-Dur) 40 meq PO BID-[facility] Last Admin: 11/23/17 16:33 Dose: 40 meq
[2017-11-23 18:32] LABS: Free T4 (Free Thyroxine) 1.14 ng/dL (0.70-1.48)
[2017-11-23] MEDS: Atorvastatin Calcium 20 MG TAB PO SCH (20:57)
[2017-11-23] MEDS: Azithromycin 500 MG in Sodium Chloride 0.9% 250 ML 250 ML IVPB SCH (20:59)
[2017-11-23] MEDS: cefTRIAXone\\ROCEPHIN 1 GM, Admixture Fee 1 EACH in Sodium Chloride 0.9% 100 ML IVPB SCH (23:36)
[2017-11-24] MEDS: Albuterol Sulfate 2.5 mg/3 ml Neb NEB SCH ×3 (00:32→13:58)
[2017-11-24] MEDS: Potassium Chloride 20 MEQ TAB PO SCH (08:38)
[2017-11-24] MEDS: Amlodipine 10 MG TAB PO SCH (08:38)
[2017-11-24] MEDS: Famotidine 20 MG TAB PO SCH (08:38)
[2017-11-24] MEDS: Enoxaparin Sodium 40 MG/0.4 ML SYRINGE SC SCH (08:38)
[2017-11-24 11:30] VITALS: BP 133/73; TEMP 98.4
--- NOTE | 2017-11-24 13:24 | CON ---
DATE OF CONSULTATION: 11/23/2017 REASON FOR CONSULTATION: The patient seen in consultation with Dr. Eldridge for evaluation of a p ossible tonsil mass. BRIEF HISTORY: This is a 77-year-old female who was admitted for symptoms of bronchitis and pharyngi tis. She was noted to have a sore throat and some swallowing pain as well. She reports no history o f smoking or tobacco exposure. She reports this has just started over the past 5-6 days. She had no previous history of neck lymphadenopathy or sore throat. She has never had any problems with her to nsils before. She denies any previous throat pain, blood in her sputum or in her cough. She has had no weight changes. Dr. Gomez was consulted and has also begun her on IV antibiotics. Since that ti me she reports her throat symptoms are completely resolved now. No dysphagia, no change in voice. PAST MEDICAL HISTORY: Hypertension. PAST SURGICAL HISTORY: No history of head and neck surgeries. MEDICATIONS: See medication list. PHYSICAL EXAMINATION: GENERAL: The patient is resting comfortably in bed eating lunch. Her voice is clear. NECK: Shows subtle lymphadenopathy that is all less than 1.5 cm bilateral level 2 and level 3, all m obile and soft and nontender. Thyroid appears to be within normal limits by bimanual palpation, poss ible fullness in her right thyroid area. Otherwise, laryngeal landmarks are all within normal limits . HEENT: Ears; TMs intact. Middle ear is well aerated. Nasal cavity clear. Oral cavity, pharynx, to nsils are 3+, but they appear to be healthy. No redness or asymmetry noted. Mild lateral pharyngeal banding was noted. ASSESSMENT: Acute adenotonsillar hypertrophy and tonsillitis, likely related to her recent infectiou s disease exposure. She is currently being treated for bronchitis which has alleviated a lot of her pharyngeal symptoms. I do feel that a tonsillectomy at this point would be warranted. I did discuss with the family a follow up in approximately 1-2 weeks as an outpatient for repeat clinical exam wou ld be more appropriate. She will follow up with us then. For any further concerns, please contact [employer] at [phone].
--- NOTE | 2017-11-25 00:27 | DIS ---
DATE OF ADMISSION: 11/20/2017 DATE OF DISCHARGE: 11/24/2017 PRIMARY CARE PHYSICIAN: Crystal Rivera NP DISCHARGE DIAGNOSES: 1. Sepsis. 2. Tonsillitis, probable. 3. Tonsillar enlargement. 4. Solid or complex thyroid lesions. CONDITION OF PATIENT ON THE DAY OF DISCHARGE: Stable. I assessed Mr. Ruiz on the day of discharg e. She denies any chest pain or shortness of breath. She denies any difficulty swallowing. She den ies any nausea or vomiting. Vital signs are stable. She is afebrile. S1 and S2 are heard, regular. Lungs are clear to auscultation bilaterally. CONSULTATIONS DURING THIS HOSPITALIZATION: Infectious diseases, Dr. Gomez and ENT, Dr. Maxwell Bass . HOSPITAL COURSE: Ms. Ruiz is a pleasant 77-year-old lady who was admitted to [facility] on 11/24/2017. Please refer to Dr. Eldridge's history and physical note dated 11/20 for further details. She was treated with broad-spectrum antibiotics intravenously. CT scan of the chest done on 11/21/2017 did not show any acute intrathoracic abnormality. CT scan of the abdomen and pelvis done on 11/21/2017 showed cholelithiasis, but no evidence for bowel obstructi on, free intraperitoneal air or focal bowel and traumatic change. A 2D echocardiogram done on 2017 showed left ventricular ejection fraction of 55%-60% and E/A flow reversal suggestive of diastol ic dysfunction. She also had moderate mitral regurgitation, mild aortic regurgitation, and mild-to-m oderate tricuspid regurgitation. Ultrasound of the abdomen on 11/22/2017 showed cholelithiasis with no evidence of acute biliary obstruction. She was seen by Infectious Disease Service and diagnosed w ith probable tonsillitis. She had soft tissue neck CT scan on 11/22/2017, which showed mass-like enl argement of the left palatine tonsil, mucosal thickening involving the right palatine tonsil as well as the lingual tonsils with bilateral neck lymphadenopathy. The radiologist felt that the findings m ay signify malignancy such as squamous cell carcinoma within the palatine tonsil on the left with met astatic adenopathy. Alternative consideration is multifocal infectious process, according to radiolo gist. She also had thyroid nodules on the right. She went on to have thyroid ultrasound on 11/24/19 18, which showed three solid or complex thyroid lesions. Radiologist recommends followup evaluation in 6 months to confirm stability. She was seen by ENT service and ENT service will follow up as outpatient for the possible tonsillecto my. She is being discharged home in a stable condition. DISCHARGE MEDICATIONS: In addition to her preadmission home medications as dictated on history and p hysical note by Dr. Eldridge, she is being discharged on amoxicillin/potassium clavulanate 875 mg 2 times a day for 10 days. Many thanks for allowing me to participate in your patient's care. Please feel free to contact me wi th any questions or concerns. Please note that her TSH during this hospitalization was low at 0.0032, but free T3 and free T4 were normal at 2.57 and 1.14 respectively. She will need repeat thyroid profile in 6-8 weeks. On 018, she had sodium 138, potassium 4.3, creatinine 0.53. White count 6400, down from 18,400 on 11/20, hemoglobin 11.9, and platelet count 316,000. DISCHARGE DESTINATION: Home. TOTAL AMOUNT OF TIME SPENT COORDINATING THIS DISCHARGE: 38 minutes.
--- NOTE | 2017-12-02 16:51 | PQF ---
[facility] Physician Query Form NAHOMI MCDANIEL, CHANTEL PRASAD MD [id number] CLINICAL DOCUMENTATION CLARIFICATION FORM: POST DISCHARGE Addendum to original discharge summary date: ____ Late entry note date: __ DATE: 12/02/17 ATTN: DR. CHANTEL SANDOVAL Please exercise your independent, professional judgment in responding to the clarification form. Clinical indicators are provided on the bottom of this form for your review Please check appropriate box(s) to clarify if the following diagnosis has been ruled in or ruled out: PNEUMONIA [ ] Ruled in diagnosis [ ] Continue to treat [ ] Resolved [ x] Ruled out diagnosis [ ] Cannot rule out diagnosis [ ] Other diagnosis [ ] Unable to determine In addition, please specify: Present on Admission (POA): [ ] Yes [ ] No [ ] Unable to determine For continuity of documentation, please document condition throughout progress notes and discharge summary. Thank You. CLINICAL INDICATORS - SIGNS / SYMPTOMS / LABS FEVER ELEVATED WBC CT CHEST WAS -VE FOR PNA RISK FACTORS POSSIBLE PNEUMONIA TREATMENTS ZITHROMAX AND CEFTRIAXONE (This form is maintained as a part of the permanent medical record) Page 1 of 2 Note to Provider: In responding to this query, you must exercise independent clinical judgment. The fact that a query is placed does not imply that any particular answer is desired or expected. Please document your response/ clarification to this query in the patients medical record. Your response should clarify and resolve conflicting, ambiguous, or incomplete information in the health record regarding any significant reportable condition or procedure. ( 2008 [facility] Practice Brief, pg. 5) [employer] does not endorse or approve queries developed by the hospital or its agents and issued through the [employer] software that are not in accordance with the rules or regulations promulgated by the Centers for Medicare and Medicaid (CMS), Office of Detective Sergeant (OIG), or US Department of Health and Human Services and [facility] 2008 Practice Brief Managing an Effective Query Process or its updates (Practice Brief). [employer]
== END 2017-11-24 14:44 | disposition home or self-care (01) | DRG 872 ==
LOC: ERS 15:04 → T4-A 17:40
PROVIDERS: ADMIT Internal Medicine; ATTEND Internal Medicine
DX: A41.9 Sepsis, unspecified organism (principal); J03.90 Acute tonsillitis, unspecified; E07.9 Disorder of thyroid, unspecified; K80.20 Calculus of gallbladder without cholecystitis without obstruction; I08.3 Combined rheumatic disorders of mitral, aortic and tricuspid valves; R59.1 Generalized enlarged lymph nodes; J40 Bronchitis, not specified as acute or chronic; I10 Essential (primary) hypertension; J35.1 Hypertrophy of tonsils; E78.5 Hyperlipidemia, unspecified; Z79.899 Other long term (current) drug therapy
CPT/HCPCS: 36415; 70491; 71045; 71250; 74177; 76536; 76700; 80048; 80053; 81003; 81015; 83605; 83880; 84439; 84443; 84481; 85025; 86038; 86225; 87040; 87070; 87086; 87205; 87633; 90471; 90670; 93005; 93306; 93970; 94640; 96361; 96365; 96366; G0009; J0456; J0696; J1650; J2543; J7050; J7611; J7620

== ENCOUNTER 2018-06-23 08:19 | Emergency (ER) | payer MEDICARE, MEDICAID ==
[2018-06-23 09:38] LABS: #Basophils 0.1 thou/uL (0.0-0.2); #Eosinphils 0.1 thou/uL (0.0-0.7); #Lymphocytes 1.4 thou/uL (1.20-3.40); %Basophils 0.6 % (0.0-1.0); %Eosinophils 0.7 % (0.0-10.0); %Monocytes 10.6 % (0.0-10.0); %Neutrophils 73.1 % (42.0-75.0); Hemoglobin 13.5 g/dL (12.0-16.0); Mean Corpuscular HGB CONC 33.2 g/dL (32.0-36.0); Mean Corpuscular Volume 93.4 fL (78.0-98.0); Mean Platelet Volume 7.8 fL (7.4-10.4); Platelet Count 345 thou/uL (130-400); RBC Distribution Width 11.4 % (11.5-14.5); Red Blood Cell (RBC) Count 4.36 mill/uL (4.20-5.40); White Blood Cell (WBC) Count 9.5 thou/uL (4.8-10.8)
[2018-06-23 10:00] LABS: ALT (SGPT) 10 U/L (8-55); AST (SGOT) 13 U/L (5-34); Albumin 4.1 g/dL (3.4-4.8); Alkaline Phosphatase 89 U/L (40-150); Anion Gap 12 mmol/L (10-20); BUN (Urea Nitrogen) 13 mg/dL (9.8-20.1); Bilirubin, Total 0.7 mg/dL (0.2-1.2); CK (CPK) 31 U/L (29-168); Calc. Creatinine Clearance 0 mL/min (70-130); Calcium 9.8 mg/dL (7.8-10.44); Carbon Dioxide 26 mmol/L (23-31); Chloride 102 mmol/L (98-107); Estimated GFR-MDRD Greater than 90; Globulin 3.3 g/dL (2.4-3.5); Glucose 96 mg/dL (83-110); Lipase 20 U/L (8-78); Protein, Total 7.4 g/dL (6.0-8.3); Sodium 137 mmol/L (136-145)
[2018-06-23 10:05] LABS: Potassium 2.8 mmol/L (3.5-5.1)
--- NOTE | 2018-06-23 10:11 | RAD ---
PORTABLE CHEST: Date: 06/23/18 PROVIDED CLINICAL HISTORY: Shortness of breath. FINDINGS: Comparison with 11/20/17. Cardiac and mediastinal silhouette is unchanged in appearance. No focal consolidation, pleural fluid, or pneumothorax apparent. IMPRESSION: No evidence for an acute cardiopulmonary process. POS: [facility]
[2018-06-23] MEDS ORDERED: Potassium Chloride 20 MEQ TAB ONE (10:14)
[2018-06-23 10:46] LABS: Bilirubin Negative (Negative); Blood, Urine Trace (Negative); Glucose, Urine (Dipstick) Negative (Negative); Leukocyte Negative (Negative); Nitrite Negative (Negative); Protein, Urine (Dipstick) Negative (Neg-Trace); Urobilinogen 0.2 mg/dL (0.2-1.0)
[2018-06-23 10:54] LABS: Clarity Clear (Clear)
[2018-06-23 11:03] LABS: Bacteria/HPF None Seen HPF (None Seen); Hyaline Casts/LPF 4-6 HYALINE CAST LPF (0-3 Hyaline); RBC/HPF 0-3 HPF (0-3); Squamous Epithelial 0-3 HPF (0-3); WBC/HPF 0-3 HPF (0-3)
== END 2018-06-23 11:47 | disposition home or self-care (01) ==
LOC: ERS 08:19
DX: E87.6 Hypokalemia (principal); E78.5 Hyperlipidemia, unspecified; I10 Essential (primary) hypertension; Z79.899 Other long term (current) drug therapy
CPT/HCPCS: 36415; 71045; 80053; 81003; 81015; 82550; 83690; 83880; 84484; 85025; 93005; 96360

== ENCOUNTER 2019-02-27 11:37 | Emergency (ER) | payer MEDICARE, MEDICAID ==
[2019-02-27 12:11] LABS: #Eosinphils 0.1 thou/uL (0.0-0.7); #Lymphocytes 1.9 thou/uL (1.20-3.40); #Monocytes 0.6 thou/uL (0.11-0.59); #Neutrophils 2.8 thou/uL (1.40-6.50); %Basophils 0.3 % (0.0-1.0); %Eosinophils 1.2 % (0.0-10.0); %Lymphocytes 35.4 % (21.0-51.0); %Monocytes 10.7 % (0.0-10.0); %Neutrophils 52.4 % (42.0-75.0); Mean Corpuscular HGB CONC 32.2 g/dL (32.0-36.0); Mean Corpuscular Hemoglobin 31.1 pg (27.0-31.0); Mean Corpuscular Volume 96.6 fL (78.0-98.0); Platelet Count 312 thou/uL (130-400); RBC Distribution Width 11.5 % (11.5-14.5); White Blood Cell (WBC) Count 5.3 thou/uL (4.8-10.8)
--- NOTE | 2019-02-27 12:29 | RAD ---
CHEST 1 VIEW: Date: 02/27/19 Time: 1204 hours HISTORY: Dizziness. FINDINGS: Comparison made with exam of 06/23/18. The heart size is normal. The lungs are expanded without focal areas of consolidation, pneumothoraces , or pleural effusions. The aorta is tortuous. IMPRESSION: No acute process. POS: [facility]
[2019-02-27 12:33] LABS: Bilirubin Negative (Negative); Blood, Urine Negative (Negative); Clarity Clear (Clear); Glucose, Urine (Dipstick) Normal (Negative); Leukocyte Negative Leu/uL (Negative); Nitrite Negative (Negative); Protein, Urine (Dipstick) Negative (Neg-Trace); Urobilinogen Normal mg/dL (Less than 2)
[2019-02-27 12:42] LABS: ALT (SGPT) 13 U/L (8-55); AST (SGOT) 17 U/L (5-34); Albumin 4.1 g/dL (3.4-4.8); Alkaline Phosphatase 85 U/L (40-110); Anion Gap 13 mmol/L (10-20); BUN (Urea Nitrogen) 10 mg/dL (9.8-20.1); CK (CPK) 39 U/L (29-168); Calc. Creatinine Clearance 0 mL/min (70-130); Calcium 9.3 mg/dL (7.8-10.44); Carbon Dioxide 24 mmol/L (23-31); Chloride 104 mmol/L (98-107); Estimated GFR-MDRD Greater than 90; Globulin 3.6 g/dL (2.4-3.5); Glucose 98 mg/dL (83-110); Protein, Total 7.7 g/dL (6.0-8.3); Sodium 137 mmol/L (136-145)
== END 2019-02-27 14:35 | disposition home or self-care (01) ==
LOC: ERS 11:37
DX: R55 Syncope and collapse (principal); E78.5 Hyperlipidemia, unspecified; E78.00 Pure hypercholesterolemia, unspecified; I10 Essential (primary) hypertension
CPT/HCPCS: 71045; 80053; 81003; 82550; 83880; 84484; 85025; 93005; 96360; 96361

== ENCOUNTER 2019-06-27 13:52 | Outpatient (CLI) | payer MEDICARE, MEDICAID ==
--- NOTE | 2019-06-28 12:42 | MMO ---
Bilateral MAMMO Bilat Screen [facility]. CLINICAL HISTORY: Patient is 78 years old and is seen for screening. The patient has the following family history of breast cancer: niece. The patient has no personal history of cancer. VIEWS: The views performed were: bilateral craniocaudal with tomosynthesis and bilateral mediolateral oblique with tomosynthesis. FILMS COMPARED: The present examination has been compared to prior imaging studies performed at [facility] on 11/14/2013, 12/31/2014, 01/28/2016 and 03/22/2017. This study has been interpreted with the assistance of computer-aided detection. MAMMOGRAM FINDINGS: There are scattered fibroglandular densities. Finding 1: There is a stable lobular mass seen in the sub-areolar region of the left breast. Finding 2: Benign calcifications are noted bilaterally. There are no suspicious masses, suspicious calcifications, or new areas of architectural distortion. IMPRESSION: THERE IS NO MAMMOGRAPHIC EVIDENCE OF MALIGNANCY. A ROUTINE FOLLOW-UP MAMMOGRAM IN 1 YEAR IS RECOMMENDED. THE RESULTS OF THIS EXAM WERE SENT TO THE PATIENT. ACR BI-RADS Category 2 - Benign finding MAMMOGRAPHY NOTE: 1. A negative mammogram report should not delay a biopsy if a dominant of clinically suspicious mass is present. 2. Approximately 10% to 15% of breast cancers are not detected by mammography. 3. Adenosis and dense breasts may obscure an underlying neoplasm. Reported by: IRENE TREVINO MD Electonically Signed: [id number]
== END 2019-06-27 13:53 | disposition home or self-care (01) ==
LOC: BICMAMMO 13:52
PROVIDERS: ATTEND Nurse Practitioner Family
DX: Z12.31 Encounter for screening mammogram for malignant neoplasm of breast (principal); Z80.3 Family history of malignant neoplasm of breast
CPT/HCPCS: 77063; 77067

== ENCOUNTER 2020-07-07 10:26 | Outpatient (CLI) | payer MEDICARE, MEDICAID ==
--- NOTE | 2020-07-07 13:18 | MMO ---
Bilateral MAMMO Bilat Screen [facility]. CLINICAL HISTORY: Patient is 79 years old and is seen for screening. The patient has the following family history of breast cancer: niece. The patient has no personal history of cancer. VIEWS: The views performed were: bilateral craniocaudal with tomosynthesis and bilateral mediolateral oblique with tomosynthesis. FILMS COMPARED: The present examination has been compared to prior imaging studies performed at [facility] on 12/31/2014, 01/28/2016, 03/22/2017 and 06/27/2019. This study has been interpreted with the assistance of computer-aided detection. MAMMOGRAM FINDINGS: There are scattered fibroglandular densities. Finding 1: There is a stable lobular mass seen in the sub-areolar region of the left breast. Finding 2: There are benign appearing calcifications seen in both breasts. There are no suspicious masses, suspicious calcifications, or new areas of architectural distortion. IMPRESSION: THERE IS NO MAMMOGRAPHIC EVIDENCE OF MALIGNANCY. A ROUTINE FOLLOW-UP MAMMOGRAM IN 1 YEAR IS RECOMMENDED. THE RESULTS OF THIS EXAM WERE SENT TO THE PATIENT. ACR BI-RADS Category 2 - Benign finding MAMMOGRAPHY NOTE: 1. A negative mammogram report should not delay a biopsy if a dominant of clinically suspicious mass is present. 2. Approximately 10% to 15% of breast cancers are not detected by mammography. 3. Adenosis and dense breasts may obscure an underlying neoplasm. Reported by: IRENE TREVINO MD Electonically Signed: [id number]
== END 2020-07-07 10:27 | disposition home or self-care (01) ==
LOC: BICMAMMO 10:26
PROVIDERS: ATTEND Nurse Practitioner Family
DX: Z12.31 Encounter for screening mammogram for malignant neoplasm of breast (principal); Z80.3 Family history of malignant neoplasm of breast
CPT/HCPCS: 77063; 77067

== ENCOUNTER 2022-06-26 14:25 | Emergency (ER) | payer MEDICARE, MEDICAID ==
[2022-06-26] MEDS ORDERED: Acetaminophen 500 MG TAB ONE (15:42)
[2022-06-26] MEDS ORDERED: Ondansetron ODT 4 MG TAB ONE (15:42)
== END 2022-06-26 16:20 | disposition home or self-care (01) ==
LOC: ERS 14:25
DX: B34.9 Viral infection, unspecified (principal); Z20.822 Contact with and (suspected) exposure to COVID-19
CPT/HCPCS: 87804 ×2; U0003; U0005; 99284; Q0162

== ENCOUNTER 2022-12-10 10:12 | Emergency (ER) | payer MEDICARE, MEDICAID ==
[2022-12-10] MEDS ORDERED: HYDROcodone/Acetaminophen 10/325 mg Tablet ONE (10:43)
== END 2022-12-10 11:50 | disposition home or self-care (01) ==
LOC: ERS 10:12
DX: S39.012A Strain of muscle, fascia and tendon of lower back, initial encounter (principal); E03.9 Hypothyroidism, unspecified; I10 Essential (primary) hypertension; Z79.899 Other long term (current) drug therapy; X58.XXXA Exposure to other specified factors, initial encounter
CPT/HCPCS: 72128; 72131

== ENCOUNTER 2023-03-18 13:42 | Emergency (ER) | payer MEDICARE, MEDICAID ==
[2023-03-18 14:14] LABS: #Basophils 0.1 thou/uL (0.0-0.2); #Eosinphils 0.1 thou/uL (0.0-0.7); #Monocytes 0.8 thou/uL (0.11-0.59); #Neutrophils 5.5 thou/uL (1.40-6.50); %Basophils 0.6 % (0.0-1.0); %Eosinophils 0.7 % (0.0-10.0); %Monocytes 9.3 % (0.0-10.0); %Neutrophils 67.2 % (42.0-75.0); Hematocrit 39.1 % (36.0-47.0); Hemoglobin 13.1 g/dL (12.0-16.0); Mean Corpuscular HGB CONC 33.5 g/dL (32.0-36.0); Mean Corpuscular Hemoglobin 32.7 pg (27.0-31.0); Mean Corpuscular Volume 97.5 fl (78.0-98.0); Mean Platelet Volume 9.8 fL (7.4-10.4); Platelet Count 357 10x3/uL (130-400); RBC Distribution Width 12.4 % (11.5-14.5); Red Blood Cell (RBC) Count 4.01 mill/uL (4.20-5.40); White Blood Cell (WBC) Count 8.2 10x3/uL (4.8-10.8)
[2023-03-18 14:54] LABS: ALT (SGPT) 11 U/L (8-55); AST (SGOT) 12 U/L (5-34); Albumin 4.2 g/dL (3.4-4.8); Alkaline Phosphatase 74 U/L (40-110); Anion Gap 14 mmol/L (10-20); BUN (Urea Nitrogen) 17 mg/dL (9.8-20.1); Bilirubin, Total 0.9 mg/dL (0.2-1.2); Calc. Creatinine Clearance 0 mL/min (70-130); Calcium 9.4 mg/dL (7.8-10.44); Carbon Dioxide 25 mmol/L (23-31); Chloride 102 mmol/L (98-107); Estimated GFR 74; Glucose 144 mg/dL (83-110); Potassium 3.4 mmol/L (3.5-5.1); Protein, Total 7.2 g/dL (5.8-8.1); Sodium 138 mmol/L (136-145)
[2023-03-18 15:22] LABS: Troponin I Less than 0.010 ng/mL (< 0.028)
== END 2023-03-18 17:00 | disposition left against medical advice (07) ==
LOC: ERS 13:42
DX: Z53.29 Procedure and treatment not carried out because of patient's decision for other reasons (principal)
CPT/HCPCS: 36415; 71045; 80053; 83690; 84484; 85025; 93005

== ENCOUNTER 2023-06-30 11:44 | Emergency (ER) | payer MEDICARE, MEDICAID ==
[2023-06-30 12:19] LABS: Hematocrit 40.4 % (36.0-47.0); Hemoglobin 13.7 g/dL (12.0-16.0); Manual Diff?? YES; Mean Corpuscular HGB CONC 33.9 g/dL (32.0-36.0); Mean Corpuscular Hemoglobin 32.3 pg (27.0-31.0); Mean Corpuscular Volume 95.3 fl (78.0-98.0); Mean Platelet Volume 9.8 fL (7.4-10.4); Platelet Count 391 10x3/uL (130-400); RBC Distribution Width 12.7 % (11.5-14.5); Red Blood Cell (RBC) Count 4.24 mill/uL (4.20-5.40); White Blood Cell (WBC) Count 5.3 10x3/uL (4.8-10.8)
[2023-06-30 12:21] LABS: Delete Auto Diff?? YES
[2023-06-30 12:42] LABS: ALT (SGPT) 17 U/L (8-55); AST (SGOT) 11 U/L (5-34); Albumin 4.3 g/dL (3.4-4.8); Alkaline Phosphatase 72 U/L (40-110); Anion Gap 12 mmol/L (10-20); BUN (Urea Nitrogen) 10 mg/dL (9.8-20.1); Bilirubin, Total 1.1 mg/dL (0.2-1.2); Calc. Creatinine Clearance 0 mL/min (70-130); Calcium 9.5 mg/dL (7.8-10.44); Carbon Dioxide 24 mmol/L (23-31); Chloride 104 mmol/L (98-107); Estimated GFR 90; Globulin 3.6 g/dL (2.4-3.5); Glucose 104 mg/dL (83-110); Potassium 3.7 mmol/L (3.5-5.1); Protein, Total 7.9 g/dL (5.8-8.1); Sodium 136 mmol/L (136-145)
[2023-06-30 12:50] LABS: Band 13 % (5-11); CellaVision Operator ID LAB.MJL; Eosinophils 2 % (0-10); Lymphocytes 24 % (21-51); Monocytes 10 % (0-10); Neutrophil 48 % (42-75); Platelet Adequacy Comment Platelets Normal; RBC Morphology Within Normal Limits; Reactive Lymphocytes 3 % (0-10); Total Cell Count 100
[2023-06-30 12:52] LABS: Troponin I Less than 0.010 ng/mL (< 0.028)
[2023-06-30 13:52] LABS: Bacteria/HPF None Seen HPF (None Seen); Bilirubin Negative (Negative); Blood, Urine Negative (Negative); CAUTI Indications for Culture Fever or rigors; Clarity Clear (Clear); Glucose, Urine (Dipstick) Normal (Negative); Ketone, Urine Negative (Negative); Leukocyte Negative Leu/uL (Negative); Nitrite Negative (Negative); Protein, Urine (Dipstick) Negative (Neg-Trace); RBC/HPF 0-3 HPF (0-3); Specific Gravity, Urine 1.017 (1.002-1.036); Squamous Epithelial 0-3 HPF (0-3); Urobilinogen Normal mg/dL (Less than 2); WBC/HPF 0-3 HPF (0-3)
[2023-06-30 13:55] LABS: Urine Culture Reflex No No
== END 2023-06-30 15:30 | disposition home or self-care (01) ==
LOC: ERS 11:44
DX: R53.1 Weakness (principal); R91.1 Solitary pulmonary nodule; I10 Essential (primary) hypertension; E78.5 Hyperlipidemia, unspecified; E03.9 Hypothyroidism, unspecified
CPT/HCPCS: 36415; 71045; 71046; 80053; 81001; 84484; 85025; 93005

== ENCOUNTER 2023-08-12 12:55 | Emergency (ER) | payer MEDICARE, MEDICAID ==
[2023-08-12] MEDS ORDERED: Ondansetron ODT 4 MG TAB ONE (13:41)
[2023-08-12 13:50] LABS: Hematocrit 40.1 % (36.0-47.0); Hemoglobin 13.6 g/dL (12.0-16.0); Mean Corpuscular HGB CONC 33.9 g/dL (32.0-36.0); Mean Corpuscular Hemoglobin 32.5 pg (27.0-31.0); Mean Corpuscular Volume 95.9 fL (78.0-98.0); Mean Platelet Volume 9.5 fL (7.4-10.4); Platelet Count 394 10x3/uL (130-400); RBC Distribution Width 12.8 % (11.5-14.5); Red Blood Cell (RBC) Count 4.18 mill/uL (4.20-5.40)
[2023-08-12 14:10] LABS: Band 28 % (5-11); Eosinophils 1 % (0-10); Lymphocytes 3 % (21-51); Monocytes 3 % (0-10); Neutrophil 65 % (42-75); Platelet Adequacy Comment Platelets Normal; RBC Morphology Within Normal Limits
[2023-08-12 14:34] LABS: ALT (SGPT) 12 U/L (8-55); AST (SGOT) 12 U/L (5-34); Albumin 4.1 g/dL (3.4-4.8); Alkaline Phosphatase 83 U/L (40-110); Anion Gap 14 mmol/L (10-20); BUN (Urea Nitrogen) 13 mg/dL (9.8-20.1); Calc. Creatinine Clearance 0 mL/min (70-130); Calcium 9.4 mg/dL (7.8-10.44); Carbon Dioxide 22 mmol/L (23-31); Chloride 101 mmol/L (98-107); Estimated GFR 91; Globulin 3.4 g/dL (2.4-3.5); Glucose 118 mg/dL (83-110); Lipase 10 U/L (8-78); Magnesium 1.5 mg/dL (1.6-2.6); Potassium 3.5 mmol/L (3.5-5.1); Protein, Total 7.5 g/dL (5.8-8.1); Sodium 133 mmol/L (136-145)
[2023-08-12 15:09] LABS: Bacteria/HPF None Seen HPF (None Seen); Bilirubin Negative (Negative); Blood, Urine 1+ (Negative); CAUTI Indications for Culture Pelvic or flank pain; Clarity Clear (Clear); Glucose, Urine (Dipstick) Normal (Negative); Ketone, Urine Negative (Negative); Leukocyte Negative Leu/uL (Negative); Nitrite Negative (Negative); Protein, Urine (Dipstick) 20 mg/dL (Neg-Trace); RBC/HPF 0-3 HPF (0-3); Specific Gravity, Urine 1.017 (1.002-1.036); Squamous Epithelial 0-3 HPF (0-3); Urobilinogen Normal mg/dL (Less than 2); WBC/HPF 0-3 HPF (0-3)
[2023-08-12 15:13] LABS: Urine Culture Reflex No No
[2023-08-12 15:14] LABS: Influenza A by NAA Not Detected (NotDetected); Influenza B by NAA Not Detected (NotDetected); SARS-CoV-2 NAA Rapid Test Not Detected (NotDetected)
== END 2023-08-12 17:00 | disposition home or self-care (01) ==
LOC: ERS 12:55
DX: K52.9 Noninfective gastroenteritis and colitis, unspecified (principal); R11.2 Nausea with vomiting, unspecified; I10 Essential (primary) hypertension; E78.5 Hyperlipidemia, unspecified; Z79.899 Other long term (current) drug therapy
CPT/HCPCS: 0240U; 80053; 81001; 83690; 83735; 85025; 96360; 99284; Q0162

== ENCOUNTER 2024-01-04 12:02 | Emergency (ER) | payer MEDICARE, MEDICAID ==
[2024-01-04 12:56] LABS: #Basophils 0.06 10x3/uL (0.0-0.2); %Basophils 1.1 % (0.0-1.0); %Eosinophils 0.9 % (0.0-10.0); %Lymphocytes 21.8 % (21.0-51.0); %Monocytes 12.6 % (0.0-10.0); %Neutrophils 63.2 % (42.0-75.0); Hematocrit 41.1 % (36.0-47.0); Mean Corpuscular HGB CONC 34.1 g/dL (32.0-36.0); Mean Corpuscular Hemoglobin 32.3 pg (27.0-31.0); Mean Corpuscular Volume 94.9 fL (78.0-98.0); Mean Platelet Volume 9.9 fL (7.4-10.4); Platelet Count 447 10x3/uL (130-400); RBC Distribution Width 12.5 % (11.5-14.5); Red Blood Cell (RBC) Count 4.33 mill/uL (4.20-5.40)
[2024-01-04] MEDS ORDERED: Ondansetron ODT 4 MG TAB ONE (12:59)
[2024-01-04 13:10] LABS: ALT (SGPT) 11 U/L (8-55); AST (SGOT) 13 U/L (5-34); Albumin 3.7 g/dL (3.4-4.8); Alkaline Phosphatase 84 U/L (40-110); Anion Gap 12 mmol/L (10-20); BUN (Urea Nitrogen) 12 mg/dL (9.8-20.1); Bilirubin, Total 0.9 mg/dL (0.2-1.2); Calc. Creatinine Clearance 0 mL/min (70-130); Calcium 9.4 mg/dL (7.8-10.44); Carbon Dioxide 24 mmol/L (23-31); Chloride 104 mmol/L (98-107); Estimated GFR 92; Globulin 3.9 g/dL (2.4-3.5); Glucose 100 mg/dL (83-110); Lipase 16 U/L (8-78); Potassium 3.5 mmol/L (3.5-5.1); Protein, Total 7.6 g/dL (5.8-8.1); Sodium 136 mmol/L (136-145)
[2024-01-04 13:12] LABS: Troponin I Less than 0.010 ng/mL (< 0.028)
[2024-01-04 14:51] LABS: Influenza A by NAA Not Detected (NotDetected); Influenza B by NAA Not Detected (NotDetected); SARS-CoV-2 NAA Rapid Test Not Detected (NotDetected)
== END 2024-01-04 13:42 | disposition home or self-care (01) ==
LOC: ERS 12:02
DX: R11.2 Nausea with vomiting, unspecified (principal); I10 Essential (primary) hypertension
CPT/HCPCS: 0240U; 71045; 80053; 83605; 83690; 84484; 85025; 93005; 99284; Q0162; 36415

== ENCOUNTER 2024-02-15 17:13 | Emergency (ER) | payer MEDICARE, MEDICAID ==
[2024-02-15 19:18] LABS: Bilirubin Negative (Negative); Blood, Urine Moderate (Negative); Glucose, Urine (Dipstick) Negative (Negative); Ketone, Urine Negative (Negative); Leukocyte Negative (Negative); Nitrite Negative (Negative); Protein, Urine (Dipstick) Trace mg/dL (Neg-Trace)
[2024-02-15 19:27] LABS: Clarity Hazy (Clear)
[2024-02-15 19:29] LABS: Bacteria/HPF 1+ HPF (None Seen)
[2024-02-15 19:30] LABS: CAUTI Indications for Culture Immunosuppressed; RBC/HPF 0-3 HPF (0-3); Squamous Epithelial 0-3 HPF (0-3); WBC/HPF 0-3 HPF (0-3)
[2024-02-15 19:33] LABS: Urine Culture Reflex Yes Yes
[2024-02-15 19:43] LABS: #Basophils 0.06 10x3/uL (0.0-0.2); %Basophils 0.5 % (0.0-1.0); %Eosinophils 0.3 % (0.0-10.0); %Lymphocytes 21.5 % (21.0-51.0); %Monocytes 13.3 % (0.0-10.0); %Neutrophils 63.9 % (42.0-75.0); Hematocrit 31.6 % (36.0-47.0); Hemoglobin 11.1 g/dL (12.0-16.0); Mean Corpuscular HGB CONC 35.1 g/dL (32.0-36.0); Mean Corpuscular Hemoglobin 31.9 pg (27.0-31.0); Mean Corpuscular Volume 90.8 fL (78.0-98.0); Mean Platelet Volume 9.4 fL (7.4-10.4); Platelet Count 423 10x3/uL (130-400); RBC Distribution Width 12.6 % (11.5-14.5); Red Blood Cell (RBC) Count 3.48 mill/uL (4.20-5.40)
[2024-02-15] MEDS ORDERED: Furosemide 40 MG (4 mL) VIAL ONE (19:50)
[2024-02-15 20:00] LABS: ALT (SGPT) 23 U/L (8-55); AST (SGOT) 21 U/L (5-34); Albumin 3.5 g/dL (3.4-4.8); Alkaline Phosphatase 116 U/L (40-110); Anion Gap 12 mmol/L (10-20); BUN (Urea Nitrogen) 11 mg/dL (9.8-20.1); Bilirubin, Total 0.6 mg/dL (0.2-1.2); Calc. Creatinine Clearance 0 mL/min (70-130); Calcium 9.1 mg/dL (7.8-10.44); Carbon Dioxide 25 mmol/L (23-31); Chloride 99 mmol/L (98-107); Estimated GFR 89; Globulin 3.5 g/dL (2.4-3.5); Glucose 107 mg/dL (83-110); Lipase 16 U/L (8-78); Potassium 2.7 mmol/L (3.5-5.1); Sodium 133 mmol/L (136-145)
[2024-02-15 20:05] LABS: Troponin I 0.017 ng/mL (< 0.028)
[2024-02-15] MEDS ORDERED: Potassium Bicarbonate/Cit Ac 25 MEQ TAB ONE (21:24)
[2024-02-15] MEDS ORDERED: NS 0.9% w/ 20 MEQ KCL 1,000 ML ONE (21:24)
[2024-02-16 02:13] LABS: Anion Gap 12 mmol/L (10-20); BUN (Urea Nitrogen) 9 mg/dL (9.8-20.1); Calc. Creatinine Clearance 0 mL/min (70-130); Calcium 8.8 mg/dL (7.8-10.44); Carbon Dioxide 26 mmol/L (23-31); Chloride 102 mmol/L (98-107); Estimated GFR 91; Glucose 107 mg/dL (83-110); Magnesium 1.7 mg/dL (1.6-2.6); Potassium 3.1 mmol/L (3.5-5.1); Sodium 137 mmol/L (136-145)
[2024-02-16] MEDS ORDERED: Potassium Bicarbonate/Cit Ac 20 MEQ TAB ONE (02:49)
[2024-02-16] MEDS ORDERED: Magnesium 2 GM/50 ML BAG (IN WATER) ONE (02:49)
== END 2024-02-16 03:09 | disposition home or self-care (01) ==
LOC: ERS 17:13
DX: E87.6 Hypokalemia (principal); R60.0 Localized edema; I10 Essential (primary) hypertension; Z79.899 Other long term (current) drug therapy
CPT/HCPCS: 71045; 80048; 81001; 83690; 83735; 83880; 84484; 87086; 93005; J1940; J3480; 36415; 80053; 84443; 85025; 96374; 96375; J3475